=== PATIENT | female | born 1975 | race African-American/Black ===

== ENCOUNTER 2016-05-17 14:58 | Emergency (ER) | payer OTHER ==
[~2016-05-17] VITALS: Ht 162.6 cm; Wt 107.0 kg
[2016-05-17 15:08] VITALS: Ht 162.6 cm; Wt 107.0 kg
[2016-05-17] MEDS ORDERED: ONDANSETRON 4 MG INJ IV STA (15:59)
[2016-05-17] MEDS ORDERED: morphine 4 MG/ML VIAL IV STA (15:59)
[2016-05-17] MEDS ORDERED: SOD CHLORIDE 0.9% 1,000 ML IV STA (15:59)
[2016-05-17] MEDS ORDERED: CEFTRIAXONE 1 GM/50 ML (PMX) 50 ML IVPB STA (15:59)
[2016-05-17 16:42] LABS: ADD SCAN DIFF NO
[2016-05-17 16:46] LABS: BASOPHIL # 0.1 10^3/ul (0.0-0.1); BASOPHILS % 0.4 % (0.0-2.0); EOSINOPHILS # 0.1 10^3/ul (0.0-0.5); EOSINOPHILS % 1.1 % (0.0-7.0); HEMATOCRIT 35.5 % (37.0-47.0); HEMOGLOBIN 11.8 g/dl (12.0-16.0); LYMPHOCYTES # 2.7 10^3/ul (0.8-2.9); LYMPHOCYTES % 20.8 % (15.0-51.0); MEAN CORPUSCULAR HEMOGLOBIN 27.1 pg (29.0-33.0); MEAN CORPUSCULAR HGB CONC 33.2 g/dl (32.0-37.0); MEAN CORPUSCULAR VOLUME 81.6 fl (82.0-101.0); MEAN PLATELET VOLUME 9.6 fl (7.4-10.4); MONOCYTE # 0.8 10^3/ul (0.3-0.9); MONOCYTES % 6.4 % (0.0-11.0); NEUTROPHIL # 9.2 10^3/ul (1.6-7.5); NEUTROPHILS % 70.8 % (39.0-77.0); PLATELET COUNT 336 10^3/UL (140-415); RED BLOOD COUNT 4.35 10^6/ul (4.20-5.40); RED CELL DISTRIBUTION WIDTH 15.4 % (11.5-14.5)
[2016-05-17 16:52] LABS: ADD UMIC YES; URINE BILIRUBIN (Dip) NEGATIVE (NEGATIVE); URINE BLOOD (Dip) 2+ (NEGATIVE); URINE COLOR LT. YELLOW (YELLOW); URINE GLUCOSE (Dip) NEGATIVE (NEGATIVE); URINE KETONES (Dip) NEGATIVE (NEGATIVE); URINE LEUKOCYTE ESTERASE (Dip) 1+ (NEGATIVE); URINE NITRITE (Dip) NEGATIVE (NEGATIVE); URINE TOTAL PROTEIN (Dip) NEGATIVE (NEGATIVE); URINE UROBILINOGEN (Dip) 0.2 E.U./dL (0.1-1.0)
[2016-05-17 16:58] LABS: ALBUMIN 4.3 g/dl (3.3-4.9); POTASSIUM 4.2 mmol/L (3.5-5.1)
[2016-05-17 17:00] LABS: BILIRUBIN,INDIRECT 0.1 mg/dl (0-1.1); BILIRUBIN,TOTAL 0.1 mg/dl (0.2-1.3); CREATININE 0.78 mg/dl (0.44-1.00)
[2016-05-17 17:01] LABS: ALBUMIN/GLOBULIN RATIO 1.3; CALCIUM 9.7 mg/dl (8.4-10.2); TOTAL PROTEIN 7.6 g/dl (6.1-8.1)
[2016-05-17 17:02] LABS: BACTERIA,URINE MODERATE; SQUAMOUS EPITHELIAL CELL,UR MODERATE
--- NOTE | 2016-05-17 17:18 | ERD ---
ER Documentation Chief Complaint Date/Time DATE: 05/17/16 Chief Complaint Dysuria, Left flank pain HPI The patient is a 41-year-old female who presents to the Emergency Department with complaint of left-sided flank pain. She reports that four days ago she developed dysuria, urinary frequency, urinary urgency and hesitancy. She assumed that her symptoms are likely secondary to a urine infection, and given that she was drinking a lot of soda, she switched to drinking water, hoping that it would resolve her symptoms. However, since onset, her symptoms have persisted, and since this morning she has developed left-sided flank pain. The pain is aching in nature and does not radiate. She rates her current pain as 8/ 10, but notes that she has not yet taken any medication for pain relief. She denies any hematuria. Denies fevers, chills, nausea, vomiting or diarrhea. Denies any history of similar symptoms in the past. Denies vaginal bleeding or new vaginal discharge. She has no known drug allergies. ROS All systems reviewed and are negative except as per history of present illness. Medications Home Meds Active Scripts Ibuprofen* (Motrin*) 600 Mg Tab, 600 MG PO Q6, #30 TAB Prov:STEFFANY JAMIL PA-C 05/17/16 Hydrocodone/Acetaminophen (Premont 5-325 Tablet) 1 Each Tablet, 1 EACH PO Q6, #10 TAB Prov:STEFFANY JAMIL PA-C 05/17/16 Cephalexin* (Keflex*) 500 Mg Capsule, 500 MG PO QID for 10 Days, CAP Prov:STEFFANY JAMIL PA-C 05/17/16 PMhx/Soc Medical and Surgical Hx: pt denies Medical Hx, pt denies Surgical Hx Hx Alcohol Use: No Hx Substance Use: No Hx Tobacco Use: No Smoking Status: Never smoker Physical Exam Vitals Vital Signs Date Time Temp Pulse Resp B/P Pulse Ox O2 Delivery O2 Flow Rate FiO2 05/17/16 18:08 98.5 75 20 143/84 98 Room Air 05/17/16 15:08 97.9 87 16 142/80 99 Physical Exam GENERAL: Well-developed, well-nourished, in no acute distress HEENT: Head is normocephalic, atraumatic. No scleral pallor or icterus. Conjunctiva pink. Moist mucous membranes. NECK: Supple. Full range of motion. RESPIRATORY: Lungs are clear to auscultation bilaterally. Equal breath sounds. Normal expiratory effort. CARDIOVASCULAR: Regular rate and rhythm. S1 and S2 normal. No murmurs, rubs, or gallops. GASTROINTESTINAL: Abdomen is soft, nontender, and nondistended. No guarding, no rebound tenderness. Normal bowel sounds. No abdominal bruits. No gross peritonitis. FLANK: Positive left-sided CVA tenderness. No right CVA tenderness, no mass or swelling. BACK: No midline tenderness. No paraspinal tenderness. Spine curve normal. No deformities. EXTREMITIES: No clubbing, cyanosis, or edema. Normal skin perfusion. Moving all extremities. No focal swelling or erythema. Distal pulses are palpable, 2+ bilaterally. Capillary refill is less than 2 seconds. NEUROLOGIC: The patient is alert, awake, and oriented x 3. No focal neurologic deficits. Speech is normal. INTEGUMENT: Skin is clean, dry and intact. No rashes, lesions or petechiae present. Normal turgor. PSYCHIATRIC: Appropriate; Cooperative. Result Diagram: 05/17/16 1630 05/17/16 1630 Results 24 hrs Laboratory Tests Test 05/17/16 16:30 Alanine Aminotransferase (ALT/SGPT) 36IU/L Albumin 4.3g/dl Albumin/Globulin Ratio 1.30 Alkaline Phosphatase 101IU/L Anion Gap 17 Aspartate Amino Transf (AST/SGOT) 20IU/L Basophils # 0.110^3/ul Basophils % 0.4% Blood Urea Nitrogen 12mg/dl Calcium Level 9.7mg/dl Carbon Dioxide Level 25mmol/L Chloride Level 102mmol/L Creatinine 0.78mg/dl Direct Bilirubin 0.00mg/dl Eosinophils # 0.110^3/ul Eosinophils % 1.1% Globulin 3.30g/dl Glucose Level 96mg/dl Hematocrit 35.5% Hemoglobin 11.8g/dl Indirect Bilirubin 0.1mg/dl Lipase 130U/L Lymphocytes # 2.710^3/ul Lymphocytes % 20.8% Mean Corpuscular Hemoglobin 27.1pg Mean Corpuscular Hemoglobin Concent 33.2g/dl Mean Corpuscular Volume 81.6fl Mean Platelet Volume 9.6fl Monocytes # 0.810^3/ul Monocytes % 6.4% Neutrophils # 9.210^3/ul Neutrophils % 70.8% Nucleated Red Blood Cells # 0.010^3/ul Nucleated Red Blood Cells % 0.0/100WBC Platelet Count 90419^3/UL Potassium Level 4.2mmol/L Red Blood Count 4.3510^6/ul Red Cell Distribution Width 15.4% Sodium Level 140mmol/L Total Bilirubin 0.1mg/dl Total Protein 7.6g/dl Urine Bacteria MODERATE Urine Bilirubin NEGATIVE Urine Clarity CLOUDY Urine Color LT. YELLOW Urine Glucose NEGATIVE% Urine Hemoglobin 2+ Urine Ketones NEGATIVE Urine Leukocyte Esterase 1+ Urine Microscopic RBC 10-25/HPF Urine Microscopic WBC >50/HPF Urine Nitrite NEGATIVE Urine Specific [place] 1.010 Urine Squamous Epithelial Cells MODERATE Urine Total Protein NEGATIVE Urine Urobilinogen 0.2 E.U./dL Urine pH 6.0 White Blood Count 13.010^3/ul Current Medications Medications (Trade) Dose Ordered Sig/Trip Route PRN Reason Start Time Stop Time Status Last Admin Dose Admin Sodium Chloride (NS) 1,000 ml @ 1,000 mls/hr Q1H STAT IV 05/17/16 15:59 05/17/16 16:58 DC 05/17/16 16:49 Morphine Sulfate (morphine) 4 mg ONCE STAT IV 05/17/16 15:59 05/17/16 16:01 DC 05/17/16 16:49 Ondansetron HCl 4 mg 4 mg ONCE STAT IV 05/17/16 15:59 05/17/16 16:01 DC 05/17/16 16:49 Ceftriaxone Sodium (Rocephin) 50 ml @ 100 mls/hr ONCE STAT IVPB 05/17/16 15:59 05/17/16 16:28 DC 05/17/16 16:54 Procedures/MDM Emergency Department Course: The patient was stable throughout the ER course. Laboratory work was performed. On reassessment, the patient was sitting comfortably with no signs of acute distress. Laboratory results were discussed with the patient, as well as likely diagnosis of pyelonephritis. She was given 1 g of Rocephin IV, and strict return precautions for signs of worsening condition. Medical Decision Making: This is a 41-year-old female presenting to the Emergency Department with dysuria, urinary frequency and urgency for the past 4 days, and left flank pain since this morning. On physical examination, the patient had left-sided CVA tenderness. Otherwise, she was nontoxic in appearance, with no evidence of dehydration. She was afebrile, with no tachycardia, no tachypnea, no hypotension. The differential diagnosis includes , but is not limited to, urinary tract infection, renal abscess, perinephric abscess, urethritis, nephrolithiasis, salpingitis, cervicitis, pelvic inflammatory disease, diverticulitis, cystitis, cholecystitis, appendicitis, abdominal aortic aneurysm/dissection, pyelonephritis. Urinalysis revealed 2+ hemoglobin, 1+ urine leukocyte esterase with > 50 white blood cells, consistent with a urinary infection. Given that the patient presented with dysuria and CVA tenderness, patient's symptoms are most consistent with acute pyelonephritis. She was given 1 gram Rocephin. Urine culture sent. After rest , and administration of medications and serial evaluations, the patient reports no new complaints. She continues to remain stable and nontoxic, with no signs of distress. At this time, the patient is in stable condition, and therefore can be discharged home with a prescription for Keflex, Ibuprofen and Premont and strict return precautions for signs of deteriorating or worsening condition. The patient is advised to follow up with her primary care provider within 2-3 days for re-evaluation and further management, or return to the ER sooner for any worsening symptoms. I shared all laboratory results, medical decision making and plan with the patient at length and in great detail, and the patient verbally understands and agrees with the plan for further observation and care as an outpatient. At the time of discharge, all questions were answered. Departure Diagnosis: Primary Impression: Acute pyelonephritis Condition: Stable Patient Instructions: Pyelonephritis Additional Instructions: Call your primary care doctor TOMORROW for an appointment during the next 2-3 days.See the doctor sooner or return here if your condition worsens before your appointment time. STEFFANY JAMIL PA-C May 17, 2016 17:18
[2016-05-17] MEDS ORDERED: HYDR-906 PO (17:19)
[2016-05-17] MEDS ORDERED: CEPH-443 PO (17:19)
[2016-05-17] MEDS ORDERED: IBUP-1542 PO (17:19)
[2016-05-17 18:08] VITALS: BP 143/84; PULSE 75; RESP 20; TEMP 98.5
== END 2016-05-17 18:10 | disposition home or self-care (01) ==
LOC: FTE 14:58
DX: N10 Acute pyelonephritis (principal)
CPT/HCPCS: 36415; 80053; 81001; 83690; 85025; 87086; 96374; 96375; J2270; J2405; J7030; Z7502; 81003

== ENCOUNTER 2016-09-25 18:18 | Emergency (ER) | END 2016-09-25 19:59 | disposition left against medical advice (07) | DX: Z53.21 Procedure and treatment not carried out due to patient leaving prior to being seen by health care provider (principal) ==